=== PATIENT | male | born 1965 | race Caucasian/White ===

== ENCOUNTER 2018-02-21 19:49 | Emergency (ER) | payer SELFPAY ==
[2018-02-21] MEDS ORDERED: Sodium Chloride 0.9% 10 ML Syringe FLUSH PRN (20:22)
--- NOTE | 2018-02-21 20:22 | EDM.PDOC ---
ED HPI GENERAL MEDICAL PROBLEM - General Chief Complaint: Syncope Stated Complaint: PASSED OUT Time Seen by Provider: 02/21/18 20:05 Source of Information: Reports: Patient, RN Notes Reviewed - History of Present Illness INITIAL COMMENTS - FREE TEXT/NARRATIVE: 52-year-old male comes in having had what sounds like a syncopal episode. He was out in his yard doing work this afternoon. He did begin to feel lightheaded dizzy and then awakened lying on the ground. Did call for help. He was transported here without further incident. On arrival to ED he is asymptomatic. He denies headache, nausea, vomiting, chest or abdominal pain. It was hot this afternoon, mid 80s. He states he did have a seizure about 20 years ago that was likely alcohol withdrawal. On no medication at this time. He has no known history of seizure disorder. He does drink moderate alcohol on occasion but not daily. He states he has not had alcohol for about 5 days. Headache Pain Score (Numeric/FACES): 7 - Related Data Allergies Allergy/AdvReac Type Severity Reaction Status Date / Time No Known Allergies Allergy Verified 02/21/18 20:09 Home Meds: Home Meds LORazepam [Ativan] 0.5 mg PO BEDTIME #7 tab 02/21/18 [Rx] Past Medical History Musculoskeletal History: Reports: Other (See Below) Other Musculoskeletal History: right femur fracture with nedra; fracture collar bone and fracture right arm Neurological History: Reports: Other (See Below) Other Neuro History: alcohol seizure about 20 yrs ago Social & Family History - Tobacco Use Smoking Status *Q: Current Every Day Smoker Years of Tobacco use: 34 Packs/Tins Daily: 1 - Caffeine Use Caffeine Use: Reports: Coffee, Soda - Recreational Drug Use Recreational Drug Use: No ED ROS GENERAL - Review of Systems Review Of Systems: See Below Constitutional: Denies: Fever, Chills, Diaphoresis HEENT: Reports: Other (He does have an abrasion to L tongue) Respiratory: Denies: Shortness of Breath Cardiovascular: Denies: Chest Pain GI/Abdominal: Denies: Abdominal Pain, Hematochezia, Nausea Musculoskeletal: Denies: Neck Pain, Shoulder Pain, Back Pain Skin: Reports: No Symptoms Neurological: Denies: Dizziness, Headache, Trouble Speaking, Difficulty Walking , Weakness - Physical Exam Exam: See Below General Appearance: Alert, No Apparent Distress Eye Exam: Bilateral Eye: PERRL Nose: Normal Inspection Throat/Mouth: Evidence of Tongue Biting (small abrasion L distal tongue) Head Exam: Atraumatic. No: Facial Swelling, Facial Tenderness Neck: Supple, Full Range of Motion Respiratory/Chest: No Respiratory Distress, Lungs Clear, Normal Breath Sounds Cardiovascular: Regular Rate, Rhythm GI/Abdominal: Soft, Non-Tender Neuro Exam (Abbreviated): Alert, Oriented, No Motor/Sensory Deficits, Other ( finger to nose normal, no tremor) Back Exam: Normal Inspection Extremities: Normal Inspection, Normal Range of Motion Skin Exam: Warm, Dry, Normal Color, No Rash Course - Vital Signs Last Recorded V/S: Last Vital Signs Temp 98.1 F 02/21/18 20:03 Pulse 89 02/21/18 20:03 Resp 20 02/21/18 20:03 BP 149/110 H 02/21/18 20:03 Pulse Ox 98 02/21/18 20:03 - Orders/Labs/Meds Orders: Active Orders 24 hr Category Date Time Status EKG 12 Lead [EKG Documentation Completion] [] STAT Care 02/21/18 20:21 Active Peripheral IV Care [RC] . DIRECTED Care 02/21/18 20:22 Active Sodium Chloride 0.9% [Normal Saline] 1,000 ml Med 02/21/18 20:30 Active IV ONETIME Sodium Chloride 0.9% [Saline Flush] Med 02/21/18 20:22 Active 10 ml FLUSH ASDIRECTED PRN Peripheral IV Insertion Adult [OM.PC] Stat Oth 02/21/18 20:22 Ordered Medication Orders Sodium Chloride (Normal Saline) 1,000 mls @ 999 mls/hr IV ONETIME [facility] Last Admin: 02/21/18 20:47 Dose: 999 mls/hr Sodium Chloride (Saline Flush) 10 ml FLUSH ASDIRECTED PRN PRN Reason: Keep Vein Open Last Admin: 02/21/18 20:47 Dose: 10 ml Labs: Laboratory Tests 02/21/18 02/21/18 Range/Units 20:30 20:30 WBC 12.30 H (4.23-9.07) K/mm3 RBC 4.78 (4.63-6.08) M/mm3 Hgb 14.5 (13.7-17.5) gm/L Hct 43.1 (40.1-51.0) % MCV 90.2 (79.0-92.2) fl MCH 30.3 (25.7-32.2) pg MCHC 33.6 (32.2-35.5) g/dl RDW Std Deviation 43.0 (35.1-43.9) fL Plt Count 190 (163-337) K/mm3 MPV 10.0 (9.4-12.3) fl Neut % (Auto) 83.9 H (34.0-67.9) % Lymph % (Auto) 8.7 L (21.8-53.1) % [place] % (Auto) 6.8 (5.3-12.2) % Eos % (Auto) 0.2 L (0.8-7.0) Baso % (Auto) 0.2 (0.1-1.2) % Neut # (Auto) 10.32 H (1.78-5.38) K/mm3 Lymph # (Auto) 1.07 L (1.32-3.57) K/mm3 [place] # (Auto) 0.84 H (0.30-0.82) K/mm3 Eos # (Auto) 0.03 L (0.04-0.54) K/mm3 Baso # (Auto) 0.02 (0.01-0.08) K/mm3 Manual Slide Review Abnormal smear Sodium 132 L (136-145) mEq/L Potassium 3.4 L (3.5-5.1) mEq/L Chloride 98 (98-107) mEq/L Carbon Dioxide 26 (21-32) mEq/L Anion Gap 11.4 (5-15) BUN 8 (7-18) mg/dL Creatinine 0.9 (0.7-1.3) mg/dL Est Cr Clr Drug Dosing 107.78 mL/min Estimated GFR (MDRD) > 60 (>60) mL/min BUN/Creatinine Ratio 8.9 L (14-18) Glucose 102 (74-106) mg/dL Calcium 8.2 L (8.5-10.1) mg/dL Total Bilirubin 0.3 (0.2-1.0) mg/dL AST 22 (15-37) U/L ALT 37 (16-63) U/L Alkaline Phosphatase 54 (46-116) U/L Total Protein 7.1 (6.4-8.2) g/dl Albumin 3.9 (3.4-5.0) g/dl Globulin 3.2 gm/dL Albumin/Globulin Ratio 1.2 (1-2) Ethyl Alcohol 0.00 (0.00) gm% Meds: Medications Generic Name Dose Route Start Last Admin Trade Name Freq PRN Reason Stop Dose Admin Sodium Chloride 1,000 mls @ 999 mls/hr 02/21/18 20:30 02/21/18 20:47 Normal Saline IV 999 mls/hr ONETIME NISA Administration Sodium Chloride 10 ml 02/21/18 20:22 02/21/18 20:47 Saline Flush FLUSH 10 ml ASDIRECTED PRN Administration Keep Vein Open Discontinued Medications Generic Name Dose Route Start Last Admin Trade Name Freq PRN Reason Stop Dose Admin Lorazepam 0.5 mg 02/21/18 21:52 02/21/18 21:57 Ativan PO 02/21/18 21:53 0.5 mg ONETIME ONE Administration - Re-Assessments/Exams Free Text/Narrative Re-Assessment/Exam: 02/21/18 22:05 Labs have all come back relatively normal, have given 1 L of saline, he just waited of large amount, he is therefore adequately hydrated, discharge instructions as documented. Departure - Departure Time of Disposition: 21:51 Disposition: Home, Self-Care 01 Condition: Fair Clinical Impression: Syncope Qualifiers: Encounter type: initial encounter - Discharge Information Prescriptions: LORazepam [Ativan] 0.5 mg PO BEDTIME #7 tab Referrals: PCP,None [Primary Care Provider] - Forms: ED Department Discharge Additional Instructions: Continue to drink plenty of water to maintain hydration, then 0.5 mg at bedtime for 1 week, to medical provider in about 3-4 days for follow-up evaluation. It is recommend you do not drive until you do receive medical approval to do so. Discharge instructions as documented. - My Orders Last 24 Hours: My Active Orders 02/21/18 20:21 EKG 12 Lead [EKG Documentation Completion] [RC] STAT 02/21/18 20:22 Peripheral IV Care [RC] . DIRECTED Sodium Chloride 0.9% [Saline Flush] 10 ml FLUSH ASDIRECTED PRN Peripheral IV Insertion Adult [OM.PC] Stat 02/21/18 20:30 Sodium Chloride 0.9% [Normal Saline] 1,000 ml IV ONETIME - Assessment/Plan Last 24 Hours: My Active Orders 02/21/18 20:21 EKG 12 Lead [EKG Documentation Completion] [RC] STAT 02/21/18 20:22 Peripheral IV Care [RC] . DIRECTED Sodium Chloride 0.9% [Saline Flush] 10 ml FLUSH ASDIRECTED PRN Peripheral IV Insertion Adult [OM.PC] Stat 02/21/18 20:30 Sodium Chloride 0.9% [Normal Saline] 1,000 ml IV ONETIME
[2018-02-21] MEDS ORDERED: Sodium Chloride 0.9% 1,000 ML IV SCH (20:30)
[2018-02-21] MEDS ORDERED: LORazepam 0.5 MG Tab PO ONE (21:52)
== END 2018-02-21 22:29 | disposition home or self-care (01) ==
LOC: JD.ED 19:49
DX: R55 Syncope and collapse (principal); F17.210 Nicotine dependence, cigarettes, uncomplicated
CPT/HCPCS: 36415; 80053; 85025; 93005; 96360; 99284; A9270; G0480; J7040; J7050; 93010

== ENCOUNTER 2018-05-18 12:00 | Emergency (ER) | payer OTHER ==
[2018-05-18] MEDS ORDERED: Sodium Chloride 0.9% 10 ML Syringe FLUSH PRN (12:37)
[2018-05-18] MEDS ORDERED: Metoclopramide 10 MG/2 ML SDV IVPUSH ONE (12:37)
[2018-05-18] MEDS ORDERED: Sodium Chloride 0.9% 1,000 ML IV ONE (12:38)
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
== END 2018-05-18 15:41 | disposition home or self-care (01) ==
LOC: JD.ED 12:00
DX: R42 Dizziness and giddiness (principal); F17.210 Nicotine dependence, cigarettes, uncomplicated
CPT/HCPCS: 36415; 71046; 80053; 85025; 85379; 96361; 96374; 99284; A9270; J2765; J7040; J7050

== ENCOUNTER 2018-05-31 12:03 | Emergency (ER) | payer OTHER ==
--- NOTE | 2018-05-31 18:54 | EDM.PDOC ---
ED HPI GENERAL MEDICAL PROBLEM - General Chief Complaint: Neurological Problem Stated Complaint: MEDS FOR VERTIGO MAKING IT WORSE Time Seen by Provider: 05/31/18 16:50 Source of Information: Reports: Patient History Limitations: Reports: No Limitations - History of Present Illness INITIAL COMMENTS - FREE TEXT/NARRATIVE: 53-year-old male presents for evaluation and treatment of dizziness. Patient was initially seen in the ER for this problem on February 21. He had a complete workup and was referred to his primary care provider. He has seen his primary care provider several times. He and an MRI done on May 07 which was normal. Referred to neurology. Presented to the ER on May 18 seen by myself. Had an EKG, chest x-ray and labs, everything was within normal limits. Diagnosed with vertigo and prescribed meclizine and Zofran. Patient states since being seen in the ED on May 18 did not follow up with neurology as scheduled. He has not seen his primary care provider. He did not see physical therapy or audiology as recommended. He states that the meclizine and Zofran are making his dizziness worse. He reports current symptoms of headache, night sweats, lightheadedness, dizziness, shortness of breath, nausea , vomiting, cough and vision changes. Reports vision changes in the form of Some blurry vision. Reports the night sweats started 2 or 3 days ago. He states he's been having daily headaches. States the dizziness is progressively worsening and he appreciates that it is worse after taking the meclizine. He denies any chest pain but states he is short of breath and always feels this. Reports he has been nauseated and has been vomiting as well. Denies any recent alcohol use. Patient is a current smoker. Headache Pain Score (Numeric/FACES): 4 - Related Data Allergies Allergy/AdvReac Type Severity Reaction Status Date / Time No Known Allergies Allergy Verified 05/31/18 14:27 Home Meds: Home Meds Meclizine [Antivert] 25 mg PO TID PRN #20 tab 05/18/18 [Rx] Ondansetron [Zofran ODT] 4 mg PO Q6H PRN #20 tab.dis 05/18/18 [Rx] LORazepam [Ativan] 0.5 mg PO TID PRN #15 tablet 05/31/18 [Rx] Promethazine [Phenergan] 25 mg PO Q8H PRN #15 tab 05/31/18 [Rx] Past Medical History - Past Health History Medical/Surgical History: Denies Medical/Surgical History HEENT History: Reports: Other (See Below) Other HEENT History: Vertigo Cardiovascular History: Reports: Syncope Musculoskeletal History: Reports: Other (See Below) Other Musculoskeletal History: right femur fracture with nedra; fracture collar bone and fracture right arm Neurological History: Reports: Other (See Below) Other Neuro History: alcohol seizure about 20 yrs ago - Infectious Disease History Infectious Disease History: Reports: Chicken Pox Social & Family History - Family History Family Medical History: Noncontributory - Tobacco Use Smoking Status *Q: Current Every Day Smoker Years of Tobacco use: 34 Packs/Tins Daily: 1 - Caffeine Use Caffeine Use: Reports: Coffee - Recreational Drug Use Recreational Drug Use: No ED ROS GENERAL - Review of Systems Review Of Systems: See Below Constitutional: Reports: Malaise, Night Sweats HEENT: Reports: Vision Change (blurry vision). Denies: Ear Pain Respiratory: Reports: Shortness of Breath (chronic) Cardiovascular: Denies: Chest Pain GI/Abdominal: Reports: Nausea, Vomiting Neurological: Reports: Headache ED EXAM, DIZZINESS - Physical Exam Exam: See Below Exam Limited By: No Limitations General Appearance: Alert, WD/WN, No Apparent Distress Eye Exam: Bilateral Eye: EOMI, Normal Inspection, PERRL, Other (no nystagmus present) Ears: Normal External Exam, Normal Canal, Hearing Grossly Normal, Normal TMs Nose: Normal Inspection Throat/Mouth: Normal Inspection, Normal Lips, Normal Voice, No Airway Compromise Respiratory/Chest: No Respiratory Distress, Lungs Clear, Normal Breath Sounds Cardiovascular: Normal Peripheral Pulses, Regular Rate, Rhythm, No Murmur Neurological: Alert, Normal Mood/Affect, Normal Plantar Flexion, Normal Gait Psychiatric: Normal Affect, Normal Mood Skin Exam: Warm, Dry, Normal Color Course - Vital Signs Last Recorded V/S: Last Vital Signs Temp 98.3 F 05/31/18 14:23 Pulse 59 L 05/31/18 20:16 Resp 18 05/31/18 14:23 BP 140/99 H 05/31/18 20:16 Pulse Ox 99 05/31/18 20:16 - Orders/Labs/Meds Labs: Laboratory Tests 05/31/18 05/31/18 Range/Units 17:17 17:17 WBC 7.01 (4.23-9.07) K/mm3 RBC 4.97 (4.63-6.08) M/mm3 Hgb 14.5 (13.7-17.5) gm/L Hct 43.8 (40.1-51.0) % MCV 88.1 (79.0-92.2) fl MCH 29.2 (25.7-32.2) pg MCHC 33.1 (32.2-35.5) g/dl RDW Std Deviation 49.1 H (35.1-43.9) fL Plt Count 216 (163-337) K/mm3 MPV 9.8 (9.4-12.3) fl Neutrophils % (Manual) 54 (40-60) % Band Neutrophils % 0 (0-10) % Lymphocytes % (Manual) 36 (20-40) % Atypical Lymphs % 0 % Monocytes % (Manual) 8 (2-10) % Eosinophils % (Manual) 2 (0.8-7.0) % Basophils % (Manual) 0 L (0.2-1.2) Platelet Estimate Adequate Plt Morphology Comment Normal RBC Morph Comment Normal Sodium 140 (136-145) mEq/L Potassium 4.1 (3.5-5.1) mEq/L Chloride 104 (98-107) mEq/L Carbon Dioxide 28 (21-32) mEq/L Anion Gap 12.1 (5-15) BUN 7 (7-18) mg/dL Creatinine 0.9 (0.7-1.3) mg/dL Est Cr Clr Drug Dosing 106.58 mL/min Estimated GFR (MDRD) > 60 (>60) mL/min BUN/Creatinine Ratio 7.8 L (14-18) Glucose 83 (74-106) mg/dL Calcium 9.2 (8.5-10.1) mg/dL Magnesium 2.3 (1.8-2.4) mg/dl Total Bilirubin 0.3 (0.2-1.0) mg/dL AST 19 (15-37) U/L ALT 30 (16-63) U/L Alkaline Phosphatase 62 (46-116) U/L Total Protein 7.3 (6.4-8.2) g/dl Albumin 3.9 (3.4-5.0) g/dl Globulin 3.4 gm/dL Albumin/Globulin Ratio 1.2 (1-2) TSH 3rd Generation 0.784 (0.358-3.74) uIU/mL - Re-Assessments/Exams Free Text/Narrative Re-Assessment/Exam: 05/31/18 19:10 Reviewed the labs with the patient. Highly recommend follow-up with audiology and possibly ENT for further evaluation. I still suspect vertigo is the cause of his symptoms. 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 Will stop the meclizine and try ativan and phenergran. Recommend follow-up with PCP as needed for medication changes and referrals. Discharge instructions as documented. Departure - Departure Time of Disposition: 19:11 Disposition: Home, Self-Care 01 Condition: Fair Clinical Impression: Vertigo - Discharge Information *PRESCRIPTION DRUG MONITORING PROGRAM REVIEWED*: No *COPY OF PRESCRIPTION DRUG MONITORING REPORT IN PATIENT MARISEL: No Prescriptions: LORazepam [Ativan] 0.5 mg PO TID PRN #15 tablet PRN Reason: Dizziness Promethazine [Phenergan] 25 mg PO Q8H PRN #15 tab PRN Reason: Nausea Instructions: Vertigo, [id number] Referrals: Darlin Lundberg NP [Primary Care Provider] - Kenny Ge MD [Physician] - Forms: ED Department Discharge Additional Instructions: Ativan 1 tab 3 times a day as needed for dizziness and anxiety. This medication and make you drowsy. Do not drive or operate machinery until you medication will effect you. Phenergran 1 tab 3 times a day as needed for nausea. Make sure drinking plenty of fluids. Follow-up with Dr. Ge, tape folding machine operator at the [facility]. Call [phone] schedule with him. Follow-up with your primary care provider as needed for management of your symptoms. Please return the ER if your symptoms change or worsen.
== END 2018-05-31 19:34 | disposition home or self-care (01) ==
LOC: JD.ED 12:03
DX: R42 Dizziness and giddiness (principal); F17.210 Nicotine dependence, cigarettes, uncomplicated; Z86.69 Personal history of other diseases of the nervous system and sense organs
CPT/HCPCS: 36415; 80053; 83735; 84443; 85007; 85027; 99283

== ENCOUNTER 2018-06-16 10:53 | Emergency (ER) | payer OTHER ==
[2018-06-16] MEDS ORDERED: LORazepam 2 MG/ML SDV IVPUSH STA (11:17)
--- NOTE | 2018-06-16 11:18 | EDM.PDOC ---
ED HPI GENERAL MEDICAL PROBLEM - General Chief Complaint: Neurological Problem Stated Complaint: SEIZURE Time Seen by Provider: 06/16/18 11:00 Source of Information: Reports: Patient, RN Notes Reviewed History Limitations: Reports: No Limitations - History of Present Illness INITIAL COMMENTS - FREE TEXT/NARRATIVE: The patient states that he developed seizures around 10:30 this morning, but by seizures, the patient means shaking primarily of his right upper extremity, and to some degree his left upper extremity, however, the patient is conscious. He reports that he has had similar shaking episodes since at least February of this year, although on 2 occasions he states that he was unaware of what was going on and bit his tongue, indicating that he may have in fact had a generalized tonic-clonic seizure. The patient is a binge alcoholic. He states that he typically drinks around 8 beers per day for 3 or 4 days, then will be abstinent for 2 days. He states that his last drink was 4 days ago. The patient's PCP is Leila Lundberg. - Related Data Allergies Allergy/AdvReac Type Severity Reaction Status Date / Time No Known Allergies Allergy Verified 06/16/18 10:57 Home Meds: Home Meds . [No Known Home Meds] 06/16/18 [History] Past Medical History HEENT History: Reports: Other (See Below) (BPPV) Musculoskeletal History: Reports: Fracture (Right arm, right clavicle, right femur) Psychiatric History: Reports: Anxiety (untreated) - Infectious Disease History Infectious Disease History: Reports: Chicken Pox - Past Surgical History HEENT Surgical History: Reports: Oral Surgery (wisdom teeth extraction) Musculoskeletal Surgical History: Reports: Other (See Below) (Right femur rodding) Social & Family History - Family History Family Medical History: Noncontributory - Tobacco Use Smoking Status *Q: Current Every Day Smoker Years of Tobacco use: 35 Packs/Tins Daily: 1 - Caffeine Use Caffeine Use: Reports: Coffee - Alcohol Use Alcohol Use History: Yes Alcohol Use Frequency: Binges - Recreational Drug Use Recreational Drug Use: No - Living Situation & Occupation Living situation: Reports: Single, Other (with coworkers) Occupation: Employed (Construction) ED ROS GENERAL - Review of Systems Review Of Systems: ROS reveals no pertinent complaints other than HPI. ED EXAM, GENERAL - Physical Exam Exam: See Below Exam Limited By: No Limitations General Appearance: Alert, WD/WN, Anxious Eye Exam: Bilateral Eye: EOMI, Normal Inspection Ears: Normal External Exam, Hearing Grossly Normal Nose: Normal Inspection Throat/Mouth: Normal Inspection, Normal Lips, Normal Voice, No Airway Compromise Head: Atraumatic, Normocephalic Neck: Normal Inspection, Full Range of Motion Respiratory/Chest: No Respiratory Distress, Lungs Clear, Normal Breath Sounds, No Accessory Muscle Use Cardiovascular: Normal Peripheral Pulses, No Gallop, No JVD, No Murmur, No Rub, Tachycardia (regular) Peripheral Pulses: 4+: Radial (L), Radial (R) GI/Abdominal: Normal Bowel Sounds, Soft, Non-Tender, No Organomegaly, No Distention, No Abnormal Bruit, No Mass (Male) Exam: Deferred Rectal (Males) Exam: Deferred Back Exam: Normal Inspection, Full Range of Motion, NT Extremities: Normal Inspection, Normal Range of Motion, Non-Tender, Normal Capillary Refill, No Pedal Edema Neurological: Alert, Oriented, Normal Cognition, No Motor/Sensory Deficits Psychiatric: Anxious Skin Exam: Warm, Dry, Intact, Normal Color, No Rash Course - Vital Signs Last Recorded V/S: Last Vital Signs Temp 37.2 C 06/16/18 10:57 Pulse 113 H 06/16/18 10:57 Resp 22 H 06/16/18 10:57 BP 144/102 H 06/16/18 10:57 Pulse Ox 96 06/16/18 10:57 - Orders/Labs/Meds Labs: Laboratory Tests 06/16/18 06/16/18 06/16/18 Range/Units 11:00 11:00 11:26 WBC 8.79 (4.23-9.07) K/mm3 RBC 5.24 (4.63-6.08) M/mm3 Hgb 15.4 (13.7-17.5) gm/L Hct 45.8 (40.1-51.0) % MCV 87.4 (79.0-92.2) fl MCH 29.4 (25.7-32.2) pg MCHC 33.6 (32.2-35.5) g/dl RDW Std Deviation 49.5 H (35.1-43.9) fL Plt Count 242 (163-337) K/mm3 MPV 10.5 (9.4-12.3) fl Neutrophils % (Manual) 70 H (40-60) % Band Neutrophils % 0 (0-10) % Lymphocytes % (Manual) 23 (20-40) % Atypical Lymphs % 0 % Monocytes % (Manual) 5 (2-10) % Eosinophils % (Manual) 2 (0.8-7.0) % Basophils % (Manual) 0 L (0.2-1.2) Platelet Estimate Adequate RBC Morph Comment Normal Sodium 134 L (136-145) mEq/L Potassium 4.2 (3.5-5.1) mEq/L Chloride 99 (98-107) mEq/L Carbon Dioxide 21 (21-32) mEq/L Anion Gap 18.2 H (5-15) BUN 10 (7-18) mg/dL Creatinine 0.9 (0.7-1.3) mg/dL Est Cr Clr Drug Dosing 106.58 mL/min Estimated GFR (MDRD) > 60 (>60) mL/min BUN/Creatinine Ratio 11.1 L (14-18) Glucose 97 (74-106) mg/dL Calcium 9.0 (8.5-10.1) mg/dL Magnesium 2.0 (1.8-2.4) mg/dl Total Bilirubin 0.7 (0.2-1.0) mg/dL AST 29 (15-37) U/L ALT 32 (16-63) U/L Alkaline Phosphatase 73 (46-116) U/L Total Protein 7.8 (6.4-8.2) g/dl Albumin 4.3 (3.4-5.0) g/dl Globulin 3.5 gm/dL Albumin/Globulin Ratio 1.2 (1-2) Urine Opiates Screen Negative (NEGATIVE) Ur Buprenorphine Scrn Negative (NEGATIVE) Ur Oxycodone Screen Negative (NEGATIVE) Urine Methadone Screen Negative (NEGATIVE) Ur Propoxyphene Screen Negative (NEGATIVE) Ur Barbiturates Screen Negative (NEGATIVE) Ur Tricyclics Screen Negative (NEGATIVE) Ur Phencyclidine Scrn Negative (NEGATIVE) Ur Amphetamine Screen Negative (NEGATIVE) U Methamphetamines Scrn Negative (NEGATIVE) U Benzodiazepines Scrn Negative (NEGATIVE) U Cocaine Metab Screen Negative (NEGATIVE) U Marijuana (THC) Screen Negative (NEGATIVE) Ethyl Alcohol 0.00 (0.00) gm% Meds: Medications Discontinued Medications Generic Name Dose Route Start Last Admin Trade Name Freq PRN Reason Stop Dose Admin Lorazepam 1 mg 09/26/18 11:17 06/16/18 11:32 Ativan IVPUSH 06/16/18 11:18 1 mg ONETIME STA Administration - Re-Assessments/Exams Free Text/Narrative Re-Assessment/Exam: 06/16/18 11:17 The patient is experiencing intermittent rapid shaking of his right upper extremity, and, to a much lesser degree, his left upper extremity - movement that is clearly not epileptiform. The patient appears to be quite anxious. I suspect that his condition is related to his alcohol abuse. Have ordered some blood work and a urine drug screen, and after he provides a urine sample, he will be given 1 mg IV Ativan. 06/16/18 12:38 Test results discussed with the patient. Today's workup is entirely unremarkable. Following Ativan, the patient states that he is feeling much calmer, and he is no longer shaking. I explained to him that what he was experiencing was not seizures, and that I feel that his condition is likely related to his binge drinking. The patient replied "I can stop any time", to which I replied that I think he should. I would like the patient to follow-up with his PCP, Darlin Darden, and I will refer him to [facility], should he have difficulty in stopping drinking. Departure - Departure Time of Disposition: 12:40 Disposition: Home, Self-Care 01 Condition: Good Clinical Impression: Alcoholism, Shakes - Discharge Information *PRESCRIPTION DRUG MONITORING PROGRAM REVIEWED*: Not Applicable *COPY OF PRESCRIPTION DRUG MONITORING REPORT IN PATIENT MARISEL: Not Applicable Referrals: Darlin Lundberg, SALES DEVELOPMENT REPRESENTATIVE [Primary Care Provider] - Forms: ED Department Discharge Additional Instructions: You were seen in the emergency room for upper extremity shaking. Workup in the ER included blood work and a urine drug screen. Your entire workup was unremarkable. Your symptoms essentially resolved following IV Ativan. Based on your history, physical examination, lab tests, and improvement following Ativan, your shakes were likely related to your excessive alcohol intake. We STRONGLY recommend that you stop drinking, and if you need help, we recommend that you follow-up at [facility]: [address] [facility] [phone] We also recommend that you follow-up with your PCP, Darlin Darden, at the next available appointment. If any other problems, please do not hesitate to return to the ER.
== END 2018-06-16 13:01 | disposition home or self-care (01) ==
LOC: JD.ED 10:53
DX: F10.20 Alcohol dependence, uncomplicated (principal); F17.210 Nicotine dependence, cigarettes, uncomplicated
CPT/HCPCS: 36415; 80053; 80306; 83735; 85007; 85027; 96374; 99284; G0480; J2060

== ENCOUNTER 2019-06-25 17:08 | Emergency (ER) | payer SELFPAY ==
[2019-06-25] MEDS ORDERED: LORazepam 2 MG/ML SDV ONE (17:11)
[2019-06-25] MEDS ORDERED: diphenhydrAMINE 50 MG/ML SDV IVPUSH ONE (18:02)
[2019-06-25] MEDS ORDERED: Metoclopramide 10 MG/2 ML SDV IVPUSH ONE (18:02)
[2019-06-25] MEDS ORDERED: Ketorolac 30 MG/ML SDV IVPUSH ONE (18:02)
[2019-06-25] MEDS ORDERED: Sodium Chloride 0.9% 1,000 ML IV SCH (18:15)
--- NOTE | 2019-06-25 18:37 | EDM.PDOC ---
ED HPI GENERAL MEDICAL PROBLEM - General Chief Complaint: Neurological Problem Stated Complaint: [facility] Time Seen by Provider: 06/25/19 17:47 Source of Information: Reports: Patient, RN Notes Reviewed History Limitations: Reports: No Limitations - History of Present Illness INITIAL COMMENTS - FREE TEXT/NARRATIVE: Patient is a 54-year-old male who presents to the ED via [facility] for the evaluation of a seizure. The patient states he was at work today, which was outdoors, when he had a seizure. The girlfriend states that she witnessed his knees buckling and him falling backwards into the mud. She states that for around 45 seconds she witnessed him having upper arm shaking, she witnessed him drooling with lots of mucous coming out of his mouth with strings of blood. Patient states he had a loss of consciousness, the girlfriend states that he was slightly confused after coming to after the seizure. He was oriented to person but not place or time. This has since resolved. Patient notes he had a prior history of a seizure 23 years ago, he was placed on Xanax for 3 months for seizures, during evaluation, which was determined to be alcohol related. The patient states that he still drinks alcohol, last night he drank an 8 pack of Budweiser, this is normal for him every day. The patient states that as he went to work today, so he has not had any alcohol today, as he states his employer does not let him drink at work. He thinks that he bit his tongue however there is no obvious laceration or bleeding noted at initial exam, he also denies any bowel or bladder loss, any fevers or chills, chest pain, shortness of breath, or pain anywhere other than a slight bothersome headache. Treatments BANK RECONCILIATOR: Reports: Other (see below) Other Treatments BANK RECONCILIATOR: see ambulance report for details Bilateral Head Pain Score (Numeric/FACES): 7 - Related Data Allergies Allergy/AdvReac Type Severity Reaction Status Date / Time No Known Allergies Allergy Verified 06/16/18 10:57 Home Meds: Home Meds . [No Known Home Meds] 06/16/18 [History] Past Medical History - Past Health History Medical/Surgical History: Denies Medical/Surgical History HEENT History: Reports: Other (See Below) Other HEENT History: Vertigo Cardiovascular History: Reports: Syncope Musculoskeletal History: Reports: Fracture Other Musculoskeletal History: right femur fracture with nedra; fracture collar bone and fracture right arm Neurological History: Reports: Seizure, Other (See Below) Other Neuro History: alcohol seizure about 20 yrs ago Psychiatric History: Reports: Anxiety - Infectious Disease History Infectious Disease History: Reports: Chicken Pox - Past Surgical History HEENT Surgical History: Reports: Oral Surgery Neurological Surgical History: Reports: None Musculoskeletal Surgical History: Reports: Other (See Below) Social & Family History - Family History Family Medical History: Noncontributory - Tobacco Use Smoking Status *Q: Current Every Day Smoker Years of Tobacco use: 35 Packs/Tins Daily: 1 - Caffeine Use Caffeine Use: Reports: Coffee - Recreational Drug Use Recreational Drug Use: No - Living Situation & Occupation Living situation: Reports: Single, Other (with coworkers) Occupation: Employed (Construction) ED ROS GENERAL - Review of Systems Review Of Systems: See Below Constitutional: Denies: Fever, Chills HEENT: Reports: Other (claims he bit tongue) Respiratory: Denies: Shortness of Breath Cardiovascular: Denies: Chest Pain Endocrine: Reports: No Symptoms GI/Abdominal: Denies: Abdominal Pain, Constipation, Diarrhea, Nausea, Vomiting : Denies: Incontinence (or bowel loss) Musculoskeletal: Reports: No Symptoms Skin: Reports: No Symptoms Neurological: Reports: Headache (tension type headache) Psychiatric: Reports: No Symptoms Hematologic/Lymphatic: Reports: No Symptoms Immunologic: Reports: No Symptoms - Physical Exam Exam: See Below Exam Limited By: No Limitations General Appearance: Alert, WD/WN, No Apparent Distress Eye Exam: Bilateral Eye: EOMI, Normal Inspection, PERRL Ears: Normal External Exam, Normal Canal, Hearing Grossly Normal, Normal TMs Nose: Normal Inspection, Normal Mucosa, No Blood Throat/Mouth: Normal Inspection, Normal Lips, Normal Teeth, Normal Gums, Normal Oropharynx, Normal Voice, No Airway Compromise Head Exam: Atraumatic, Normocephalic Neck: Normal Inspection, Supple, Non-Tender, Full Range of Motion Respiratory/Chest: No Respiratory Distress, Lungs Clear, Normal Breath Sounds, No Accessory Muscle Use, Chest Non-Tender Cardiovascular: Normal Peripheral Pulses, Regular Rate, Rhythm, No Murmur GI/Abdominal: Normal Bowel Sounds, Soft, Non-Tender, No Distention, No Mass Neuro Exam (Abbreviated): Alert, Oriented, CN II-XII Intact (grossly), Normal Cognition, No Motor/Sensory Deficits Extremities: Normal Inspection, Normal Range of Motion, Normal Capillary Refill Psychiatric: Normal Affect, Normal Mood Skin Exam: Warm, Dry, Intact, Normal Color, No Rash Course - Vital Signs Last Recorded V/S: Last Vital Signs Temp 99.4 F 06/25/19 18:31 Pulse 94 06/25/19 18:31 Resp 24 H 06/25/19 18:31 BP 146/85 H 06/25/19 18:31 Pulse Ox 97 06/25/19 18:31 - Orders/Labs/Meds Orders: Active Orders 24 hr Category Date Time Status Chest 2V [CR] Stat Exams 06/25/19 19:38 Ordered Sodium Chloride 0.9% [Normal Saline] 1,000 ml Med 06/25/19 18:15 Active IV ASDIRECTED Medication Orders Sodium Chloride (Normal Saline) 1,000 mls @ 125 mls/hr IV ASDIRECTED NISA Last Infusion: 06/25/19 19:24 Dose: 999 mls/hr Admin: 06/25/19 18:23 Dose: 125 mls/hr Labs: Laboratory Tests 06/25/19 06/25/19 06/25/19 Range/Units 18:42 18:42 18:50 WBC 10.15 H (4.23-9.07) K/mm3 RBC 4.44 L (4.63-6.08) M/mm3 Hgb 14.1 (13.7-17.5) gm/dl Hct 40.1 (40.1-51.0) % MCV 90.3 (79.0-92.2) fl MCH 31.8 (25.7-32.2) pg MCHC 35.2 (32.2-35.5) g/dl RDW Std Deviation 50.6 H (35.1-43.9) fL Plt Count 174 (163-337) K/mm3 MPV 9.6 (9.4-12.3) fl Neutrophils % (Manual) 71 H (40-60) % Band Neutrophils % 6 (0-10) % Lymphocytes % (Manual) 11 L (20-40) % Atypical Lymphs % 0 % Monocytes % (Manual) 10 (2-10) % Eosinophils % (Manual) 0 L (0.8-7.0) % Basophils % (Manual) 2 H (0.2-1.2) Toxic Granulation 1+ slight Platelet Estimate Adequate Plt Morphology Comment Normal RBC Morph Comment Normal Sodium 129 L (136-145) mEq/L Potassium 3.7 (3.5-5.1) mEq/L Chloride 95 L (98-107) mEq/L Carbon Dioxide 25 (21-32) mEq/L Anion Gap 12.7 (5-15) BUN 7 (7-18) mg/dL Creatinine 0.7 (0.7-1.3) mg/dL Est Cr Clr Drug Dosing 135.49 mL/min Estimated GFR (MDRD) > 60 (>60) mL/min BUN/Creatinine Ratio 10.0 L (14-18) Glucose 91 (74-106) mg/dL Calcium 8.7 (8.5-10.1) mg/dL Phosphorus 3.1 (2.6-4.7) mg/dL Magnesium 2.0 (1.8-2.4) mg/dl Total Bilirubin 0.5 (0.2-1.0) mg/dL AST 47 H (15-37) U/L ALT 57 (16-63) U/L Alkaline Phosphatase 74 (46-116) U/L Creatine Kinase 175 (39-308) U/L Total Protein 7.0 (6.4-8.2) g/dl Albumin 3.9 (3.4-5.0) g/dl Globulin 3.1 gm/dL Albumin/Globulin Ratio 1.3 (1-2) Urine Color (Yellow) Urine Appearance (Clear) Urine pH (5.0-8.0) Ur Specific [place] (1.005-1.030) Urine Protein (Negative) Urine Glucose (UA) (Negative) Urine Ketones (Negative) Urine Occult Blood (Negative) Urine Nitrite (Negative) Urine Bilirubin (Negative) Urine Urobilinogen (0.2-1.0) Ur Leukocyte Esterase (Negative) Urine RBC (0-5) /hpf Urine WBC (0-5) /hpf Ur Squamous Epith Cells (0-5) /hpf Urine Bacteria (FEW) /hpf Hyaline Casts (0-5) /lpf Urine Mucus (FEW) /hpf Urine Opiates Screen Negative (MHCSDZ=168) Ur Buprenorphine Scrn Negative (CUTOFF=10) Ur Oxycodone Screen Negative (UUK2TU=299) Urine Methadone Screen Negative (DVZ9RT=999) Ur Propoxyphene Screen Negative (NXHAGP=372) Ur Barbiturates Screen Negative (YCWJTE=578) Ur Tricyclics Screen Negative (RDOAZA=632) Ur Phencyclidine Scrn Negative (CUTOFF=25) Ur Amphetamine Screen Negative (GZNYXR=796) U Methamphetamines Scrn Negative (FRGXVM=727) U Benzodiazepines Scrn Negative (PFEYAS=677) U Cocaine Metab Screen Negative (QZYFSM=097) U Marijuana (THC) Screen Negative (CUTOFF=50) Ethyl Alcohol 0.00 (0.00) gm% 06/25/19 Range/Units 18:50 WBC (4.23-9.07) K/mm3 RBC (4.63-6.08) M/mm3 Hgb (13.7-17.5) gm/dl Hct (40.1-51.0) % MCV (79.0-92.2) fl MCH (25.7-32.2) pg MCHC (32.2-35.5) g/dl RDW Std Deviation (35.1-43.9) fL Plt Count (163-337) K/mm3 MPV (9.4-12.3) fl Neutrophils % (Manual) (40-60) % Band Neutrophils % (0-10) % Lymphocytes % (Manual) (20-40) % Atypical Lymphs % % Monocytes % (Manual) (2-10) % Eosinophils % (Manual) (0.8-7.0) % Basophils % (Manual) (0.2-1.2) Toxic Granulation Platelet Estimate Plt Morphology Comment RBC Morph Comment Sodium (136-145) mEq/L Potassium (3.5-5.1) mEq/L Chloride (98-107) mEq/L Carbon Dioxide (21-32) mEq/L Anion Gap (5-15) BUN (7-18) mg/dL Creatinine (0.7-1.3) mg/dL Est Cr Clr Drug Dosing mL/min Estimated GFR (MDRD) (>60) mL/min BUN/Creatinine Ratio (14-18) Glucose (74-106) mg/dL Calcium (8.5-10.1) mg/dL Phosphorus (2.6-4.7) mg/dL Magnesium (1.8-2.4) mg/dl Total Bilirubin (0.2-1.0) mg/dL AST (15-37) U/L ALT (16-63) U/L Alkaline Phosphatase (46-116) U/L Creatine Kinase (39-308) U/L Total Protein (6.4-8.2) g/dl Albumin (3.4-5.0) g/dl Globulin gm/dL Albumin/Globulin Ratio (1-2) Urine Color Yellow (Yellow) Urine Appearance Clear (Clear) Urine pH 6.5 (5.0-8.0) Ur Specific [place] 1.025 (1.005-1.030) Urine Protein 1+ H (Negative) Urine Glucose (UA) Negative (Negative) Urine Ketones 2+ H (Negative) Urine Occult Blood Trace-lysed H (Negative) Urine Nitrite Negative (Negative) Urine Bilirubin Negative (Negative) Urine Urobilinogen 0.2 (0.2-1.0) Ur Leukocyte Esterase Negative (Negative) Urine RBC 0-5 (0-5) /hpf Urine WBC Not seen (0-5) /hpf Ur Squamous Epith Cells Not seen (0-5) /hpf Urine Bacteria Rare (FEW) /hpf Hyaline Casts 0-5 (0-5) /lpf Urine Mucus Few (FEW) /hpf Urine Opiates Screen (THNUCF=597) Ur Buprenorphine Scrn (CUTOFF=10) Ur Oxycodone Screen (VVN8CT=216) Urine Methadone Screen (JXB3YW=329) Ur Propoxyphene Screen (ZBWQGG=093) Ur Barbiturates Screen (DZBJSI=416) Ur Tricyclics Screen (CEDPEM=236) Ur Phencyclidine Scrn (CUTOFF=25) Ur Amphetamine Screen (VGLMEJ=653) U Methamphetamines Scrn (ZGCTRV=082) U Benzodiazepines Scrn (EDXTNO=918) U Cocaine Metab Screen (QZGFGI=689) U Marijuana (THC) Screen (CUTOFF=50) Ethyl Alcohol (0.00) gm% Meds: Medications Generic Name Dose Route Start Last Admin Trade Name Freq PRN Reason Stop Dose Admin Sodium Chloride 1,000 mls @ 125 mls/hr 06/25/19 18:15 06/25/19 19:24 Normal Saline IV 999 mls/hr ASDIRECTED NISA Infusion Discontinued Medications Generic Name Dose Route Start Last Admin Trade Name Freq PRN Reason Stop Dose Admin Chlordiazepoxide HCl 50 mg 06/25/19 20:38 Librium PO 06/25/19 20:39 ONETIME ONE Diphenhydramine HCl 25 mg 06/25/19 18:02 06/25/19 18:18 Benadryl IVPUSH 06/25/19 18:03 25 mg ONETIME ONE Administration Ketorolac Tromethamine 30 mg 06/25/19 18:02 06/25/19 18:15 Toradol IVPUSH 06/25/19 18:03 30 mg ONETIME ONE Administration Lorazepam Confirm 06/25/19 17:11 06/25/19 18:08 Ativan Administered 06/25/19 17:12 Not Given Dose 2 mg .ROUTE .STK-MED ONE Metoclopramide HCl 10 mg 06/25/19 18:02 06/25/19 18:20 Reglan IVPUSH 06/25/19 18:03 10 mg ONETIME ONE Administration - Re-Assessments/Exams Free Text/Narrative Re-Assessment/Exam: 06/25/19 18:40 Patient presents to the ED for witnessed seizure-like activity. I did order a CBC, CMP, CPK, urine drug screen, negative loss, and a blood alcohol level with some IV fluids, 25 mg Benadryl, 10 migrans Reglan, 30 mg Toradol. I'm holding off on Ativan at this time, as the patient specifically was asking for this upon arrival to the ER. 2 mg was pulled out of the Pyxis by nursing staff, but when he asked about being given Ativan, they held it off until I could evaluate the patient. I somewhat suspect that the patient is trying to have some secondary gain from being administered Ativan. As he is without any sort of obvious shaking at this time, and has had control of his bowel or bladder, I will treat his headache and him some IV fluids for management. 06/25/19 20:38 Patient's laboratory evaluations done, and demonstrates a modestly elevated white count, with 71% neutrophils and 6% bandemia, and a mildly decreased sodium level of 129. Patient did receive a bag of normal saline, I did discuss the patient's case with Dr.K Duffy, she agrees that the patient is most likely having some sort of alcohol induced seizure. She suggested giving 50 mg of Librium for management and having him recheck his sodium in a week or so. Patient is receptive to this plan, he states that his primary care provider is Darlin Lundberg , However I informed him that she is no longer working at this clinic so he will need to follow up with a different family practice provider. 06/25/19 20:46 Chest x-ray looks stable from films taken 1 year ago. No acute changes noted. This was reviewed by myself and Dr. Luda Duffy. Official radiology read pending. Departure - Departure Time of Disposition: 20:40 Disposition: Home, Self-Care 01 Condition: Fair Clinical Impression: Hyponatremia, Witnessed seizure-like activity, Alcohol abuse - Discharge Information *PRESCRIPTION DRUG MONITORING PROGRAM REVIEWED*: No *COPY OF PRESCRIPTION DRUG MONITORING REPORT IN PATIENT MARISEL: No Instructions: What You Need to Know About Alcohol Abuse and Dependence, Adult, Hyponatremia Referrals: PCP,Unknown [Ordering Only Provider] - Forms: ED Department Discharge Additional Instructions: You were evaluated in the ED tonight for your seizure-like activity. You had labs drawn, and demonstrated that you were mildly hyponatremic, at 129, you were given some IV fluids in management of this tonight, he should also eat a few saltine meals over the next day or so. Recommend that you have your sodium level be drawn in a week's time by a family practice provider at our [facility] clinic, our telephone number is [phone], any family practice provider can provide you with the services. Recommend that you stop or try to quit drinking. You may go to [facility] services for help with alcohol issues. Their telephone number is [phone]. You may line something up on Thursday with them if you should desire to quit drinking. I strongly suggest that you take this advice. Please return to the ED if your symptoms change or worsen. - My Orders Last 24 Hours: My Active Orders 06/25/19 18:15 Sodium Chloride 0.9% [Normal Saline] 1,000 ml IV ASDIRECTED 06/25/19 19:38 Chest 2V [CR] Stat - Assessment/Plan Last 24 Hours: My Active Orders 06/25/19 18:15 Sodium Chloride 0.9% [Normal Saline] 1,000 ml IV ASDIRECTED 06/25/19 19:38 Chest 2V [CR] Stat
[2019-06-25] MEDS ORDERED: chlordiazePOXIDE 25 MG Cap PO ONE (20:38)
--- NOTE | 2019-06-27 08:01 | CR ---
Chest: Two views of the chest were obtained. Comparison: Prior chest x-ray of 05/10/18. Heart size is normal. Tortuous thoracic aorta is seen. Lungs are clear. Scattered disc space narrowing is noted within the thoracic spine with mild scattered endplate osteophytes. Diaphragms are flattened on the lateral view. Impression: 1. Emphysematous change. Nothing acute is appreciated on two-view chest x-ray. Diagnostic code #2
== END 2019-06-25 21:04 | disposition home or self-care (01) ==
LOC: JD.ED 17:08
DX: E87.1 Hypo-osmolality and hyponatremia (principal); F10.10 Alcohol abuse, uncomplicated; R56.9 Unspecified convulsions; F17.210 Nicotine dependence, cigarettes, uncomplicated
CPT/HCPCS: 36415; 71046; 80053; 80306; 80320; 81001; 82550; 83735; 84100; 85007; 85027; 96361; 96374; 96375; 99284; A9270; J1200; J1885; J2765; J7040; G0480